=== PATIENT | female | born 1955 | race Caucasian/White ===

== ENCOUNTER 2019-08-26 04:56 | Emergency (ER) | payer BC, OTHER ==
[~2019-08-26] VITALS: Ht 149 cm; Wt 56.6 kg
[2019-08-26] MEDS ORDERED: NITROGLYCERIN 2% OINT 1 GM UNIT DOSE PACKET TOP ONE (05:15)
[2019-08-26 05:25] LABS: BASOPHILS % (AUTO) 0 % (0-10); EOSINOPHILS % (AUTO) 6 % (0-10); HEMATOCRIT 40 % (35-52); HEMOGLOBIN 13.4 G/DL (11.5-16.0); LYMPHOCYTES % (AUTO) 18 % (12-44); MEAN CORPUSCULAR HEMOGLOBIN 31 PG (25-34); MEAN CORPUSCULAR HGB CONC 34 G/DL (32-36); MEAN CORPUSCULAR VOLUME 90 FL (80-99); MEAN PLATELET VOLUME 9.8 FL (7.4-10.4); MONOCYTES % (AUTO) 4 % (0-12); NEUTROPHILS % (AUTO) 71 % (42-75); PLATELET COUNT 320 10^3/uL (130-400); RED CELL DISTRIBUTION WIDTH 13.2 % (10.0-14.5); WHITE BLOOD COUNT 16.7 10^3/uL (4.3-11.0)
[2019-08-26 05:26] LABS: BASOPHILS # (AUTO) 0.1 10^3/uL (0.0-0.1); MONOCYTES # (AUTO) 0.7 X 10^3 (0.0-1.0); NEUTROPHILS # (AUTO) 11.9 X 10^3 (1.8-7.8)
[2019-08-26 05:30] VITALS: BP 122/77
[2019-08-26 05:38] LABS: PROTHROMBIN TIME PATIENT 13.1 SEC (12.2-14.7)
[2019-08-26 05:43] LABS: BAND NEUTROPHILS 5 %; BASOPHILS % (MANUAL) 0 %; EOSINOPHILS % (MANUAL) 4 %; LYMPHOCYTES % (MANUAL) 18 %; MONOCYTES % (MANUAL) 4 %; NEUTROPHILS % (MANUAL) 69 %
[2019-08-26 05:45] LABS: ALANINE AMINOTRANSFERASE 19 U/L (0-55); ALBUMIN 4.2 GM/DL (3.2-4.5); ALKALINE PHOSPHATASE 92 U/L (40-136); BILIRUBIN,TOTAL 0.3 MG/DL (0.1-1.0); BUN/CREATININE RATIO 21; CALCIUM 9.1 MG/DL (8.5-10.1); CARBON DIOXIDE 21 MMOL/L (21-32); CHLORIDE 108 MMOL/L (98-107); CREATININE SERUM 0.68 MG/DL (0.60-1.30); GFR ESTIMATED > 60; GLUCOSE 147 MG/DL (70-105); MAGNESIUM 2.1 MG/DL (1.6-2.4); POTASSIUM 3.9 MMOL/L (3.6-5.0); SODIUM 141 MMOL/L (135-145); TOTAL PROTEIN 7.6 GM/DL (6.4-8.2)
--- NOTE | 2019-08-26 05:54 | ED Chest Pain ---
General Chief Complaint: Respiratory Problems Stated Complaint: SOB Nursing Triage Note: PT COMPLAINING OF SOB. HX OF ASTHMA. Nursing Sepsis Screen: No Definite Risk Source: patient, EMS History of Present Illness Date Seen by Provider: Aug 26, 2019 Time Seen by Provider: 04:56 Initial Comments Patient is a 64-year-old female presenting with complaints of shortness of breath and chest tightness. She has a history of asthma and a family history of cardiac disease. She denies any known cardiac disease for herself. She had sudden onset of difficulty breathing this morning to the point that she could only speak in 1-2 word sentences. She had EMS arrived and her O2 sats were in the 75-80% range. She had severe chest tightness with this. She had EMS give her breathing treatments which had helped somewhat with her breathing and chest tightness. She was able to breathe better runs time she arrived in ED. She also had ST elevation showing up on her electrocardiogram. She denied any prior heart attack in the past. She still was having some chest tightness and nitroglycerin was applied. She was given aspirin by EMS as well as 2 breathing treatments and Solu-Medrol 125 mg IV. Allergies and Home Medications Allergies Coded Allergies: Penicillins (Verified Allergy, Unknown, 08/26/19) Patient Home Medication List Home Medication List Reviewed: Yes Review of Systems Review of Systems Constitutional: No chills, No fever EENTM: No Symptoms Reported Respiratory: Cough, Shortness of Air, SOA With Exertion, SOA at Rest, Wheezing Cardiovascular: Chest Pain (chest tightness), Lightheadedness Gastrointestinal: No Symptoms Reported Genitourinary: No Symptoms Reported Musculoskeletal: no symptoms reported Skin: no symptoms reported Psychiatric/Neurological: Anxiety Past [id number] Hx Past Med/Social Hx: Reviewed Nursing Past Med/Soc Hx Patient Social History Alcohol Use: Denies Use Recreational Drug Use: No Smoking Status: Current Everyday Smoker Type Used: Cigarettes Recent Foreign Travel: No Contact w/Someone Who Travel: No Recent Infectious Disease Expo: No Recent Hopitalizations: No Physical Abuse: No Sexual Abuse: No Mistreated: No Fear: No Past Medical History Surgeries: Yes Appendectomy, Section, Hysterectomy, Tonsillectomy Respiratory: Yes Asthma Cardiac: No Neurological: No Genitourinary: No Gastrointestinal: No Musculoskeletal: No Endocrine: No HEENT: No Cancer: No Psychosocial: No Integumentary: No Blood Disorders: No Physical Exam Vital Signs Vital Signs - First Documented 08/26/19 04:56 Temp 36.3 Pulse 107 Resp 24 B/P (MAP) 122/77 (92) Pulse Ox 94 O2 Delivery Nasal Cannula O2 Flow Rate 4.00 Capillary Refill : Less Than 3 Seconds Height, Weight, BMI Height: '" Weight: lbs. oz. kg; 25.00 BMI Method: General Appearance: Anxious, Moderate Distress HEENT: PERRL/EOMI, Pharynx Normal Neck: Non Tender, Supple; No Carotid Bruit Respiratory: Chest Non Tender, Accessory Muscle Use, Rales (in her lung bases), Wheezing Cardiovascular: Normal Peripheral Pulses, Tachycardia Gastrointestinal: No Pulsatile Mass, Soft Extremity: Normal Capillary Refill, Non Tender, No Calf Tenderness Neurologic/Psychiatric: Alert, Oriented x3 Skin: Warm/Dry, Pallor Progress/Results/Core Measures Results/Orders Lab Results Laboratory Tests Test 08/26/19 05:05 Range/Units White Blood Count 16.7 H 4.3-11.0 10^3/uL Red Blood Count 4.39 4.35-5.85 10^6/uL Hemoglobin 13.4 11.5-16.0 G/DL Hematocrit 40 35-52 % Mean Corpuscular Volume 90 80-99 FL Mean Corpuscular Hemoglobin 31 25-34 PG Mean Corpuscular Hemoglobin Concent 34 32-36 G/DL Red Cell Distribution Width 13.2 10.0-14.5 % Platelet Count 320 130-400 10^3/uL Mean Platelet Volume 9.8 7.4-10.4 FL Neutrophils (%) (Auto) 71 42-75 % Lymphocytes (%) (Auto) 18 12-44 % Monocytes (%) (Auto) 4 0-12 % Eosinophils (%) (Auto) 6 0-10 % Basophils (%) (Auto) 0 0-10 % Neutrophils # (Auto) 11.9 H 1.8-7.8 X 10^3 Lymphocytes # (Auto) 3.0 1.0-4.0 X 10^3 Monocytes # (Auto) 0.7 0.0-1.0 X 10^3 Eosinophils # (Auto) 1.0 H 0.0-0.3 10^3/uL Basophils # (Auto) 0.1 0.0-0.1 10^3/uL Neutrophils % (Manual) 69 % Lymphocytes % (Manual) 18 % Monocytes % (Manual) 4 % Eosinophils % (Manual) 4 % Basophils % (Manual) 0 % Band Neutrophils 5 % Prothrombin Time 13.1 12.2-14.7 SEC INR Comment 1.0 0.8-1.4 Activated Partial Thromboplast Time 25 24-35 SEC Sodium Level 141 135-145 MMOL/L Potassium Level 3.9 3.6-5.0 MMOL/L Chloride Level 108 H 98-107 MMOL/L Carbon Dioxide Level 21 21-32 MMOL/L Anion Gap 12 5-14 MMOL/L Blood Urea Nitrogen 14 7-18 MG/DL Creatinine 0.68 0.60-1.30 MG/DL Estimat Glomerular Filtration Rate > 60 BUN/Creatinine Ratio 21 Glucose Level 147 H 70-105 MG/DL Calcium Level 9.1 8.5-10.1 MG/DL Corrected Calcium 8.9 8.5-10.1 MG/DL Magnesium Level 2.1 1.6-2.4 MG/DL Total Bilirubin 0.3 0.1-1.0 MG/DL Aspartate Amino Transf (AST/SGOT) 24 5-34 U/L Alanine Aminotransferase (ALT/SGPT) 19 0-55 U/L Alkaline Phosphatase 92 40-136 U/L Troponin I 0.77 *H <0.30 NG/ML Pro-B-Type Natriuretic Peptide 128.1 H <75.0 PG/ML Total Protein 7.6 6.4-8.2 GM/DL Albumin 4.2 3.2-4.5 GM/DL My Orders Orders - STAN ARVIZU MD Cbc With Automated Diff (08/26/19 05:13) Magnesium (08/26/19 05:13) Chest 1 View Ap/Pa Only (08/26/19 05:13) Ekg Tracing (08/26/19 05:13) Comprehensive Metabolic Panel (08/26/19 05:13) Protime With Inr (08/26/19 05:13) Partial Thromboplastin Time (08/26/19 05:13) O2 (08/26/19 05:13) Monitor-Rhythm Ecg Trace Only (08/26/19 05:13) Ed Iv/Invasive Line Start (08/26/19 05:13) Troponin I Fs (08/26/19 05:13) Probnp Fs (08/26/19 05:13) Nitroglycerin Ointment (Nitrobid Ointme (08/26/19 05:15) Manual Differential (08/26/19 05:05) Medications Given in ED Current Medications Medications Dose Ordered Sig/Michele Route Start Time Stop Time Status Last Admin Dose Admin Nitroglycerin 0.5 inch ONCE ONCE TOP 08/26/19 05:15 08/26/19 05:16 DC 08/26/19 05:18 0.5 INCH Vital Signs/I&O 08/26/19 08/26/19 08/26/19 04:56 04:56 05:30 Temp 36.3 Pulse 107 100 Resp 24 22 B/P (MAP) 122/77 (92) 122/77 Pulse Ox 94 96 94 O2 Delivery Nasal Cannula Nasal Cannula Nasal Cannula O2 Flow Rate 4.00 4.00 2.00 Blood Pressure Mean: 92 Progress Progress Note #1: Progress Note With her electrocardiogram showing ST elevation in leads V2 3 and 4 and with some depression in II and III the patient was given some Nitropaste half an inch for her chest tightness. She was continued on supplemental oxygen. A helicopter was in route to transport her for the ST elevation to hospital but had a cathete r lab capability. It's unclear how much of this was respiratory versus cardiac but with some elevation present on the tracing and wanted to get her where at least cardiology was available. Progress Note #2: Progress Note Pt reports she was feeling a little better after nitroglycerin. She wants to go to [facility] in [place]. I contacted the [facility] access Center for arranging a transfer. I spoke with KEREN Zuluaga at the transfer center and he got me in contact with Dr. Martin from Cardiology. I relayed to him that I was unsure if the patient was only having cardiac issues were also was having the true STEMI since she had ST elevation but did have a lot of respiratory concerns as well. He did accept the patient in transfer and wanted her to stop through the emergency department to be evaluated and have a repeat electrocardiogram done. The patient will be transferred by helicopter for the sake of time and to get her to the catheter lab as soon as possible. The patient needed a higher l evel care with cardiology and possibly pulmonary and she requested again to go to [facility] when I wanted her to go to the closest facility with Electrical Test Engineer I mentioned going to [facility] in [facility] or to [place] and she again wanted to go to [place]. Progress Note #3: Progress Note After the patient had left I did call and update the transfer center that the labs came back showing a mildly elevated white blood cell count of 16.7 thousand. Her troponin came back at twice the upper limits of normal at 0.77. She had a normal creatinine and normal hemoglobin and platelets. Initial ECG Impression Date: Aug 26, 2019 Initial ECG Impression Time: 04:55 Initial ECG Rate: 103 Initial ECG Rhythm: S.Tach Initial ECG Comparisson: No Previous ECG Available Comment Sinus tachycardia with heart rate 103 beats for minute. OH interval 172 ms. QT interval 342 ms with a QT corrected interval 448 ms. She does have ST elevation of 1/2-2 mm in leads V2, V3, V4 with some mild depression in leads II and lead III. No prior tracing for comparison. Departure Impression Primary Impression: STEMI (ST elevation myocardial infarction) Qualified Codes: I21.3 - ST elevation (STEMI) myocardial infarction of unspecified site Additional Impression: Respiratory distress Disposition: 02 XFER SHT-TRM HOSP Condition: Critical Transfer Time Spoke to Accepting Phy: 05:24 Transfer Progress Notes Discussed with Dr. Martin with cardiology about the patient. He requested that she come to the emergency department with Dr. Aceveod and be reevaluated with a repeat electrocardiogram at that time. If she continued to have ST elevation or further symptoms and he would make a decision about Electrical Test Engineer versus cardiology admit at that time Transfer Facility: [facility] Method of Transfer: Air Departure-Patient Inst. Referrals: NO,LOCAL PHYSICIAN (PCP) Primary Care Physician STAN ARVIZU MD Aug 26, 2019 05:54
--- NOTE | 2019-08-26 06:35 | Diagnostic Imaging Report ---
INDICATION: Shortness of breath COMPARISON: None. FINDINGS: Single view of the chest demonstrates chronic interstitial changes bilaterally. Heart is slightly enlarged. There is no pneumothorax or effusion. Osseous structures are age-appropriate. IMPRESSION: No acute cardiopulmonary findings. Dictated by: Dictated on workstation # [id number]
== END 2019-08-26 05:33 | disposition short-term general hospital (02) ==
LOC: EDUNIT# 04:56 → ER FS 04:57
DX: I21.3 ST elevation (STEMI) myocardial infarction of unspecified site (principal); R06.03 Acute respiratory distress; J45.909 Unspecified asthma, uncomplicated; F17.210 Nicotine dependence, cigarettes, uncomplicated; Z90.49 Acquired absence of other specified parts of digestive tract; Z90.89 Acquired absence of other organs; Z90.710 Acquired absence of both cervix and uterus; Z88.0 Allergy status to penicillin
CPT/HCPCS: 36415; 71045; 80053; 83735; 83880; 84484; 85007; 85027; 85610; 85730; 93005; 93041

== ENCOUNTER → 2020-02-02 | Outpatient (CLI) | payer BC | LOC: CARD 13:51 | PROVIDERS: ATTEND Internal Medicine Cardiovascular Disease | DX: I34.0 Nonrheumatic mitral (valve) insufficiency (principal); I51.81 Takotsubo syndrome; I10 Essential (primary) hypertension; E78.2 Mixed hyperlipidemia; J45.901 Unspecified asthma with (acute) exacerbation; R09.89 Other specified symptoms and signs involving the circulatory and respiratory systems | CPT/HCPCS: 93306 ==